=== PATIENT | female | born 1950 | race Caucasian/White ===

== ENCOUNTER 2023-11-17 14:28 | Outpatient (REF) | payer MEDICARE, MEDICAID, SELFPAY ==
--- NOTE | 2023-11-17 11:20 | SKI_PTH ---
PATIENT: Isabella Camilo LOC: [facility] U#:[id number] AGE/SX: 73/F ROOM: RE11/17/[address]: Pat Garza : 1950 BED: DIS: 11/17/2023 SPEC #: [id number] RECD: 11/17/23 17:58 STATUS: MARKO REQ #: [id number] STEPHANIE: 11/17/23 11:[address]: Debby Clements DEPT: Surgical Specimen RECD BY: Sara Giron ENTERED: 11/17/23 17:58 SP TYPE: TIMOTHY BELLA DR: Marci Zuluaga MD Tissues: 1 - SKIN BIOPSY(SHAVE/PUNCH) Procedures: SKIN LEVEL 4 Comments: [id number]
== END 2023-11-17 14:29 | disposition home or self-care (01) ==
LOC: LBN 14:28
PROVIDERS: PCP Physician Assistant; Visit Provider Registered Nurse Maternal Newborn
DX: R23.4 Changes in skin texture (principal)
CPT/HCPCS: 87624; 88305